=== PATIENT | male | born 1980 | race Caucasian/White ===

== ENCOUNTER → 2016-08-17 | Outpatient (CLI) | payer BC ==
[~2016-08-17] MED LIST: ALL180 PO; DXY100 PO; SINCALIDE INJ 1.6 MCG in SODIUM CHLORIDE 0.9% 100ML 100 ML IV ONE; VERAMYST27.5 MCG
--- NOTE | 2016-08-17 09:54 | DIAGNOSTIC IMAGING REPORT ---
NUCLEAR MEDICINE HEPATOBILIARY SCAN WITH EJECTION FRACTION HISTORY: Pain. Nausea. RUQ PAIN COMPARISON: None. TECHNIQUE: Immediately following the intravenous administration of 5.641 mCi Tc-99m Choletec, dynamic anterior abdominal imaging pre/post 1.6 mcg of Kinevac was performed. FINDINGS: Uniform hepatic tracer accumulation is shown. Prompt intrahepatic biliary excretion is seen. The gallbladder, common bile duct, and small bowel are all visualized by 25 minutes. This appearance represents the normal sequence of biliary excretion. The gallbladder ejection fraction following administration of Kinevac was 83 % (normal >35%). IMPRESSION: 1. No evidence for cystic duct obstruction. 2. Gallbladder ejection fraction calculated to be 83 %. Electronically signed by: Efren Layton M.D. 08/17/2016 9:52 AM
== END | disposition home or self-care (01) ==
LOC: C.NUCL 07:26
PROVIDERS: ATTEND Internal Medicine Gastroenterology
DX: R10.11 Right upper quadrant pain (principal)

== ENCOUNTER → 2016-09-17 | Outpatient (CLI) | payer BC ==
[~2016-09-17] MED LIST changes: -SINCALIDE INJ 1.6 MCG in SODIUM CHLORIDE 0.9% 100ML 100 ML IV ONE
--- NOTE | 2016-09-17 08:36 | DIAGNOSTIC IMAGING REPORT ---
ADDENDUM ADDENDUM: The case was reviewed with Dr. Martines in urology. Regarding the epididymal tail abnormality, the degree of hyperemia as well as scrotal wall thickening seen on 07/29/2016 has significantly improved. The right epididymal tail remains thickened and nodular in appearance. The appearance is overall similar to studies dating back to 2009. The epididymal tail appears lobulated, and a discrete 12 mm nodule is not entirely excluded. Electronically signed by: Charles Bruner M.D. 09/17/2016 10:23 AM Dictated Date/Time: 09/17/2016 10:21 AM ORIGINAL REPORT ULTRASOUND TESTES AND SCROTUM CLINICAL HISTORY: Orchitis. Epididymitis. COMPARISON STUDY: Scrotal ultrasound dated 07/29/2016 and 11/08/2009. TECHNIQUE: Real-time, grayscale, and color Doppler sonography of the testes and scrotum is performed. Images are reviewed in the transverse and longitudinal planes. FINDINGS: The testes are normal in size and homogeneous in echotexture. The right testis measures 4.5 x 2.1 x 2.8 cm and the left testis measures 4.2 x 2.1 x 2.8 cm. No intratesticular mass is seen. Testicular blood flow is normal and symmetric. Normal Doppler waveforms are identified in both testes. The epididymal heads are normal in appearance. The right epididymal head measures 1.2 cm in length and the left epididymal head measures 0.9 cm in length. A 3 mm epididymal head cyst is incidentally noted on the right and a 4 mm epididymal head cyst is incidentally noted on the left. There is thickening of the right epididymal tail which measures up to 1.2 cm. There is mildly increased flow in this region. No varicocele or hydrocele is seen. IMPRESSION: 1. Unremarkable sonographic appearance of the testes. 2. There is thickening of the right epididymal tail, somewhat similar in appearance to the 11/08/2009 examination. This is nonspecific and could represent epididymitis as clinically suspected. Less likely this could represent an epididymal mass lesion or complex cyst. Consider short-term sonographic follow-up for reassessment/to document resolution. Electronically signed by: Charles Bruner M.D. 09/17/2016 8:34 AM Dictated Date/Time: 09/17/2016 8:28 AM
== END | disposition home or self-care (01) ==
LOC: C.ULTR 07:31
PROVIDERS: ATTEND Urology
DX: N45.1 Epididymitis (principal); N45.3 Epididymo-orchitis

== ENCOUNTER → 2017-07-29 | Outpatient (CLI) | payer BC ==
--- NOTE | 2017-07-29 14:58 | DIAGNOSTIC IMAGING REPORT ---
ABDOMINAL ULTRASOUND, RIGHT UPPER QUADRANT HISTORY: Liver lesion. COMPARISON: CT of the abdomen and pelvis July 27, 2016. FINDINGS: Hepatic echogenicity is at the upper limits of normal. Liver morphology is normal. A 1.9 cm echogenic right hepatic lobe lesion corresponds to the finding shown on CT of July 27, 2016. This is unchanged in size when allowing for differences in technique. No additional hepatic lesions are identified. There are no gallstones. Pancreas is within normal limits by sonography. There is no right hydronephrosis. No biliary ductal dilatation is present. IMPRESSION: 1. 1.9 cm echogenic subcapsular right hepatic lobe lesion which corresponds to the lesion shown on CT of July 27, 2016. The findings suggest a hemangioma. 2. No gallstones or biliary ductal dilatation. Electronically signed by: Harry Nguyễn M.D. 07/29/2017 2:56 PM Dictated Date/Time: 07/29/2017 2:54 PM
== END | disposition home or self-care (01) ==
LOC: C.ULTRBC 14:01
PROVIDERS: ATTEND Family Medicine
DX: K76.9 Liver disease, unspecified (principal)

== ENCOUNTER → 2017-08-25 | Outpatient (CLI) | payer OTHER ==
[~2017-08-25] VITALS: Ht 175.3 cm; Wt 83.2 kg
[2017-08-25 11:07] VITALS: BP 125/82; PULSE 67; Ht 175.3 cm; Wt 83.2 kg
== END | disposition home or self-care (01) ==
LOC: C.NEUR 10:45
PROVIDERS: ATTEND Internal Medicine Pulmonary Disease
DX: R06.83 Snoring (principal); G47.33 Obstructive sleep apnea (adult) (pediatric)

== ENCOUNTER → 2017-09-12 | Outpatient (CLI) | payer OTHER ==
--- NOTE | 2017-09-16 16:55 | Sleep Study ---
Sleep Study Report Date of Service: 09/12/2017 Sleep Study Report CLINICAL DATA: The patient is a 37-year-old male. He has a BMI of 27.02. His complaints were those of snoring, morning tiredness, and possible observed apnea. His [place] Sleepiness Scale score was 3. On the evening of 09/12/2017 a home sleep apnea test was performed using the Carter type 3 monitor. RECORDING RESULTS: Total recording time was 10:00 a.m.. The patient's estimated sleep time was 6.4 hours. RESPIRATORY DATA: The patient had a total of 15 respiratory events including 3 obstructive apneas , 7 central apneas, and 5 hypopneas. The maximum respiratory event was 24 seconds. The ALONZO was 2.4. This represents no significant sleep apnea. OXIMETRY DATA: The mean saturation was 93%. The minimum saturation was 86% and was very transient. The estimated sleep time below 89% was 0 minutes. HEART RATE DATA: The minimum heart rate was 48 beats per minute. The mean heart rate was 56 beats per minute. SNORING DATA: The patient had snoring present throughout the test. IMPRESSIONS: 1. No significant sleep apnea 2. Primary snoring RECOMMENDATIONS: 1. The patient should avoid sleeping in the supine position. Typically there is more snoring and respiratory events while supine. 2. Consideration is given to an ENT evaluation in light of the severe snoring but without sleep apnea. 3. Consideration could be given to an evaluation for an oral appliance which may be beneficial with snoring. 4. The patient should be advised the appropriate principles of sleep hygiene including having a regular sleep-wake schedule and allowing approximately 7.5 hours of sleep time per night. Copies To 1: Afshin Mendez DO; Rl Weiner M.D.; Cierra Bustillo PA
== END | disposition home or self-care (01) ==
LOC: C.NEUR 08:28
PROVIDERS: ATTEND Internal Medicine Pulmonary Disease
DX: G47.33 Obstructive sleep apnea (adult) (pediatric) (principal)

== ENCOUNTER → 2017-09-29 | Outpatient (CLI) | payer OTHER ==
--- NOTE | 2017-09-29 08:39 | DIAGNOSTIC IMAGING REPORT ---
FUSION CT SINUSES W/O HISTORY: 37 years-old Male J30.9 Allergic rhinitisPATIENT HAS LEFT GREATER THAN RIGHT SEPTA allergic rhinitis COMPARISON: None available TECHNIQUE: Multiple axial CT images of the paranasal sinuses were obtained without contrast. Axial Medtronic images were also obtained. A dose lowering technique was used consistent with the principals of SARINA. FINDINGS: No acute intracranial abnormality identified. Mastoid air cells and middle ear cavities are clear. No calvarial fracture, facial bone fracture or dislocation. Soft tissues and orbits are unremarkable. Mild polypoid mucosal thickening of the posterior medial left maxillary antrum. Minimal mucosal thickening of the inferior right maxillary sinus. The frontal sinuses are clear. There is minimal mucosal thickening of the inferior right sphenoid sinus seen best on the coronal images. There is minimal mucosal thickening involving several ethmoid air cells bilaterally. Mild rightward bowing and spurring of the nasal septum. Small right coleen bullosa. Sejal camilo appears normal. No Sarah cell identified. Minimal mucosal thickening with patency of the right maxillary ostiomeatal units. The left maxillary ostiomeatal unit is patent and unremarkable. IMPRESSION: 1. Mild paranasal sinus disease as above with patency of the bilateral maxillary ostiomeatal units. 2. Mild rightward bowing and spurring of the nasal septum. The above report was generated using voice recognition software. It may contain grammatical, syntax or spelling errors. Electronically signed by: Antwon Marcus M.D. 09/29/2017 8:37 AM Dictated Date/Time: 09/29/2017 8:31 AM
== END | disposition home or self-care (01) ==
LOC: C.CTS 08:18
PROVIDERS: ATTEND Physician Assistant
DX: J30.9 Allergic rhinitis, unspecified (principal)

== ENCOUNTER → 2018-03-01 | Outpatient (CLI) | payer OTHER ==
[~2018-03-01] MED LIST changes: +FEXO1TAB46 PO; +PRLSR20 PO
[2018-03-01 17:14] LABS: BASO % 1.2 %; BASO ABS # 0.06 K/uL (0-0.2); EOS % 6.4 %; EOS ABS # 0.32 K/uL (0-0.5); HEMATOCRIT 42.6 % (42-52); HEMOGLOBIN 14.9 g/dL (14.0-18.0); LYMPH % 35.9 %; LYMPH ABS # 1.79 K/uL (1.2-3.4); MEAN CELL VOLUME 89.1 fL (80-100); MEAN CORPUSCULAR HEMOGLOBIN 31.2 pg (25-34); MEAN PLATELET VOLUME 11.6 fL (7.4-10.4); MONO % 7.6 %; MONO ABS # 0.38 K/uL (0.11-0.59); NEUT % 48.9 %; NEUT ABS # 2.44 K/uL (1.4-6.5); PLATELET COUNT 233 K/uL (130-400); RED CELL DISTRIBUTION WIDTH CV 12.2 % (11.5-14.5); RED CELL DISTRIBUTION WIDTH SD 38.9 fL (36.4-46.3); WHITE BLOOD COUNT 4.99 K/uL (4.8-10.8)
[2018-03-01 17:23] LABS: PTT PATIENT 27.3 SECONDS (21.0-31.0)
[2018-03-01 17:49] LABS: POTASSIUM 3.8 mmol/L (3.5-5.1)
== END | disposition home or self-care (01) ==
LOC: C.LABBC 15:27
DX: Z01.818 Encounter for other preprocedural examination (principal)

== ENCOUNTER → 2018-03-17 | Day surgery (SDC) | payer OTHER ==
[2018-03-06 13:37] VITALS: Ht 175.3 cm; Wt 79.5 kg
[~2018-03-17] VITALS: Ht 175.3 cm; Wt 79.5 kg
[~2018-03-17] MED LIST changes: -ALL180 PO; +DEXAMETHASONE SOD INJ 4 MG/ML VIAL ONE; -DXY100 PO; +EpINEphrine INJ 1MG/ML AMP 1 MG/ML AMP ONE; +FENTANYL CITRATE INJ 50 MCG/1 ML 2 ML VIAL ONE; +HYDROCODONE/ACETAMIN 5/325MG TAB PO PRN; +LACTATED RINGER'S 1000ML 1,000 ML IV SCH; +LIDOCAINE 4% MPF SOAK 5 ML = 1 DOSE ONE; +LIDOCAINE HCL 2% 2 ML VIAL (20MG/ML) ONE; +LIDOCAINE MPF 4% INJ ONE; +LIDOCAINE/EPINEPHRINE 1% 20 ML VIAL ONE; +MIDAZOLAM HCL 1 MG/ML 2ML VIAL ONE; +ONDANSETRON INJ 2 MG/ML 2 ML VIAL IV PRN; +ONDANSETRON INJ 2 MG/ML 2 ML VIAL ONE; +OXYMETAZOLINE HCL 0.05% NA SPR 15 ML BTL PRN; +PROPOFOL IV EMULSION 10 MG/ML 20 ML VIAL ONE; +SCOPOLAMINE 1.5 MG TDSY TD ONE
--- NOTE | 2018-03-17 10:37 | History and Physical: Surg Cnt ---
History & Physical Date Mar 17, 2018. Chief Complaint RIGHT SEPTAL DEVIATION, BILATERAL INFERIOR TURBINATE HYPERTROPHY History of Present Illness The patient is a 37 year old male with RIGHT SEPTAL DEVIATION, BILATERAL INFERIOR TURBINATE HYPERTROPHY WITH SYMPTOMS DESPITE ALLERGY RX. Past Medical/Surgical History PMH: ALLERGIC RHINITIS PSH: S/P HERNIA REPAIR Additional History Hepatic Disease: No Endocrine Disorder: No Kidney Disease: No Hypertension: No Heart Disease: No Bleeding Tendencies: No Infectious Diseases: No Allergies Coded Allergies: Cefuroxime (Unverified Adverse Reaction, Intermediate, CANKER SORES IN MOUTH, 03/17/18) Home Medications Scheduled , 27.5 MCG NA DAILY Fexofenadine Hcl (Candida), 180 MG PO DAILY Omeprazole (Prilosec), 20 MG PO QAM Physical Examination Skin: warm/dry, no rash Eyes: normal inspection, EOMI, sclerae normal ENT: + pertinent finding (R DNS, B ITH) Head: normocephalic, atraumatic Neck: supple, no adenopathy, trachea midline Respiratory/Chest: lungs clear, normal breath sounds, no respiratory distress Cardiovascular: regular rate, rhythm, no edema, no murmur Neurologic/Psych: no motor/sensory deficits, alert, normal reflexes, oriented x 3 Diagnosis RIGHT SEPTAL DEVIATION, BILATERAL INFERIOR TURBINATE HYPERTROPHY Plan of Treatment SEPTOPLASTY AND BILATERAL INFERIOR TURBINATE REDUCTION
--- NOTE | 2018-03-17 11:52 | [facility] Operative Report ---
Operative Report Operative Date Mar 17, 2018. Pre-Operative Diagnosis Allergic Rhinitis, Nasal Septal Deviation, Hypertrophy of Uvula, Hypertrophy of Both Inferior Nasal Turbinates Post-Operative Diagnosis Same Procedure(s) Performed Septoplasty, Bilateral Inferior Turbinate Reduction Surgeon Dr. Damon Performance Test Engineer Surgeon(s) None Estimated Blood Loss 10 ml Findings 1. MODERATELY SEVERE RIGHT SEPTAL DEVIATION 2. MODERATE BILATERAL INFERIOR TURBINATE HYPERTROPHY Specimens None Anesthesia Type General I attest to the content of the Intraoperative Record and any orders documented therein. Any exceptions are noted below.
--- NOTE | 2018-03-17 11:53 | Discharge Instructions ---
Discharge Instructions Date of Service Mar 17, 2018. Admission Reason for Admission: Allergic Rhinitis, Nasal Septal Deviation, Hypertr Discharge Discharge Diagnosis / Problem: SAME Discharge Goals Goal(s): Therapeutic intervention Activity Recommendations Activity Limitations: as noted below LIGHT ACTIVITY AND NO NOSE BLOWING FOR 2 WEEKS; NO DRIVING WHILE ON NORCO . Current Hospital Diet Patient's current hospital diet: Discharge Diet Recommended Diet: Regular Diet Procedures Procedures Performed: Septoplasty, Bilateral Inferior Turbinate Reduction Pending Studies Studies pending at discharge: no Medical Emergencies . Who to Call and When: Medical Emergencies: If at any time you feel your situation is an emergency, please call 911 immediately. . Non-Emergent Contact Non-Emergency issues call your: Surgeon . . "Provider Documentation" section prepared by Ethan Damon. .
--- NOTE | 2018-03-17 12:28 | Anesthesia Progress Nt - [facility] ---
Anesthesia Post Op Note Date & Time Mar 17, 2018 at 12:27 Vital Signs Pain Intensity: 4 Vital Signs Past 12 Hours Date Time Temp Pulse Resp B/P (MAP) Pulse Ox O2 Delivery O2 Flow Rate FiO2 03/17/18 12:16 145/93 03/17/18 12:13 79 21 98 03/17/18 12:13 81 21 03/17/18 12:11 147/89 03/17/18 12:08 85 18 99 03/17/18 12:08 85 18 03/17/18 12:06 156/92 03/17/18 12:04 147/104 03/17/18 12:03 36.5 89 12 147/104 97 Humidified Oxygen 6 Mask 03/17/18 09:35 36.6 59 16 131/80 (97) 96 Room Air Notes Mental Status: alert / awake / arousable, participated in evaluation Pt Amnestic to Procedure: Yes Nausea / Vomiting: adequately controlled Pain: adequately controlled Airway Patency, RR, SpO2: stable & adequate BP & HR: stable & adequate Hydration State: stable & adequate Anesthetic Complications: no major complications apparent
--- NOTE | 2018-03-17 12:46 | OPERATIVE REPORT ---
DATE OF OPERATION: 03/17/2018 PREOPERATIVE DIAGNOSES: 1. Right septal deviation. 2. Left greater than right inferior turbinate hypertrophy. POSTOPERATIVE DIAGNOSES: 1. Right septal deviation. 2. Left greater than right inferior turbinate hypertrophy. PROCEDURES: 1. Septoplasty. 2. Bilateral inferior turbinate outfracture and turbinoplasty. SURGEON: Ethan Damon MD ANESTHESIA: General endotracheal. ESTIMATED BLOOD LOSS: 10 mL. FINDINGS: 1. Moderately severe right septal deviation. 2. Left greater than right inferior turbinate hypertrophy. SPECIMENS: None. COMPLICATIONS: None. INDICATIONS FOR THE PROCEDURE: The patient is a 37-year-old male with a history of right greater than left nasal airway obstruction which has been refractory to maximum medical therapy including allergy treatment. He was found on physical examination to have right septal deviation and left greater than right inferior turbinate hypertrophy. The patient also complains of snoring. He had a sleep study that was negative for obstructive sleep apnea. He presents for the above-mentioned procedures on an outpatient elective basis. DESCRIPTION OF PROCEDURE: After informed consent had been obtained from the patient, the patient was wheeled to the operating room and placed on the operating room table in the supine position. Monitors were placed. After induction of general endotracheal anesthesia, the patient was prepped in usual fashion for septoplasty. 1% lidocaine with 1:100,000 epinephrine was used to inject the nasal septum bilaterally, thereby performing hydrodissection of the mucoperichondrium and mucoperiosteal flaps. Lidocaine and epinephrine pledgets were then placed in the bilateral nasal cavities and pressure applied. Trimmed iris scissors were used to trim the patient's nasal vibrissae. The pledgets were then removed. A #15 scalpel was used to make a left Julio Cesar incision through which the left-sided mucoperichondrium and mucoperiosteal flap was elevated. A #15 scalpel was then used to incise the quadrangular cartilage with care to preserve a 1.5 cm dorsal and caudal strut and the right-sided mucoperichondrium and mucoperiosteal flap was elevated through this cartilaginous incision. A Tomy swivel knife was then used to remove the deviated portion of the quadrangular cartilage. A V-shaped osteotome, mallet, and Ciera forceps was then used to remove a large bony septal spur which was impinging on the airway posteriorly to the right hand side. Once this was removed, the septum was midline. The septal cavity was suctioned. The left Julio Cesar incision was closed with several simple interrupted 4-0 chromic sutures. A 4-0 plain gut suture on the Gaurav needle was then used to perform a quilting stitch of the mucoperichondrium and mucoperiosteal flaps bilaterally to help prevent septal hematoma. A Sommers elevator was then used to infracture and subsequently outfracture the inferior turbinates bilaterally. These were injected with 1% lidocaine with 1:100,000 epinephrine. A 2.0 mm turbinate blade using powered instrumentation was then used to perform bilateral inferior turbinoplasties in a submucosal fashion. The nasal cavities and nasopharynx were then suctioned. An orogastric tube was placed and the stomach was suctioned free of air and stomach contents. This marked the end of the case. The patient tolerated the procedure well. There were no apparent complications. The patient was extubated and transferred to recovery room in stable condition. I attest to the content of the Intraoperative Record and any orders documented therein. Any exception s are noted below.
[2018-03-17 13:10] VITALS: BP 123/77; PULSE 65; O2SAT 97
== END | disposition home or self-care (01) ==
LOC: X.SURG 08:51
DX: J34.2 Deviated nasal septum (principal); J34.3 Hypertrophy of nasal turbinates; K13.79 Other lesions of oral mucosa; K21.9 Gastro-esophageal reflux disease without esophagitis; K44.9 Diaphragmatic hernia without obstruction or gangrene; Z88.8 Allergy status to other drugs, medicaments and biological substances